=== PATIENT | female | born 1950 | race Hispanic/Latino ===

== ENCOUNTER 2016-12-19 01:02 | Inpatient (IN) | payer MEDICARE, MEDICAID ==
[2016-12-19] VITALS (10 sets, daily range): BP systolic 94–137; BP diastolic 43–70; PULSE 57–80; RESP 16–20; O2SAT 95–99
[~2016-12-19] VITALS: Ht 154.9 cm; Wt 93.2 kg
[~2016-12-19 01:02] MED LIST: ACET-171 PO; ACET1TAB42 PO; ASPI-235 PO; CLOP75TA3 PO; HUM100IN3 SUBQ; LOVA40TA PO; POLY17PO6 PO; SERT50TA PO; SEVE800T10 PO; VIT1TABL50 PO
[2016-12-19 01:18] LABS: BASOPHILS % (AUTO) 1.4 % (0-3); EOSINOPHILS % (AUTO) 2.7 % (0-5); MONOCYTES % (AUTO) 16.2 % (4-12); Mean Corpuscular Hemoglobin 32.5 pg (27.0-35.0); Mean Corpuscular Volume 100.2 fL (81-100); NEUTROPHILS % (AUTO) 51.3 % (40-74); Platelet Count 246 bil/L (150-400)
--- NOTE | 2016-12-19 01:20 | ED.REPORT ---
HPI-Chest Pain 40 and Over Date of Service Dec 19, 2016 ED Provider: Jay Jay Heaton DO A 66 year old female with a history of diabetes, ESRD on dialysis, depression, CHF, stroke, anemia, and right shoulder surgery is brought to the ED via EMS due to nonradiating right-sided chest pain. The pain began approximately 45 minutes prior to when the pt called paramedics. The pt denies pressure, sharp pain, ripping pain, or tearing pain, describing more of a "discomfort." She received aspirin en route which resolved the pain. She denies neck pain, back pain, abdominal pain, or pleuritic pain, as well as any history of similar symptoms. The pt took her blood sugar before calling paramedics, which was in the 390's. She took 10 units of insulin and her dose of Lantus. Nursing Notes Stated Complaint: CHEST PAIN Chief Complaint: Chest Pain Nursing Notes Reviewed: Yes Allergies: Coded Allergies: adhesive tape (Verified Allergy, Severe, Rash/Blister/Skin Tears (Paper OK), 06/02/16) latex (Verified Allergy, Severe, RASH, 06/02/16) losartan (Verified Allergy, Severe, Rash,Itching,, 06/02/16) MAYURI Inhibitors (Verified Adverse Reaction, Severe, cough, 06/02/16) gentamicin (Verified Adverse Reaction, Severe, NAUSEA DIARRHEA, 06/02/16) Scheduled Acetaminophen/Codeine 300-30mg (Acetaminophen/Codeine 300-30mg) 1 Each Tablet 1 TAB PO 3x WEEKLY BEFORE DIALYSIS & hs prn Aspirin (Lite Coat Aspirin) 325 Mg Tablet 325 MG PO DAILY Cholecalciferol (Vitamin D3) (Vitamin D) 1,000 Unit Tablet 4,000 UNIT PO DAILY Clopidogrel Bisulfate (Plavix) 75 Mg Tablet 75 MG PO DAILY Hum Insulin NPH/Reg Insulin Hm (HUMulin 70/30 U100 Insulin Kwikpen) 100 Unit/1 Ml Insuln.pen 27 UNIT SUBQ AM Hum Insulin NPH/Reg Insulin Hm (HUMulin 70/30 U100 Insulin Kwikpen) 100 Unit/1 Ml Insuln.pen 7-10 UNIT SUBQ evening per sliding scale Lovastatin (Lovastatin) 40 Mg Tablet 40 MG PO HS Polyethylene Glycol 3350 (Miralax) 17 Gm Powd.pack 17 GM PO DAILY Sertraline HCl (Zoloft) 50 Mg Tablet 25 MG PO DAILY Sevelamer HCl (Renagel) 800 Mg Tablet 2,400 MG PO BID Vit B Cmplx 3/FA/Vit C/Biotin (Nephro-Agustina Rx) 1 Each Tablet 0.8 MG PO DAILY Scheduled PRN Acetaminophen (Acetaminophen) 500 Mg Tablet 500-1,000 MG PO Q6H PRN PRN For Fever Bisacodyl (Dulcolax) 5 Mg Tablet.dr 5 MG PO DAILY PRN PRN For Constipation Miscellaneous Medications Cinacalcet (Sensipar) 30 Mg Tablet General Time Seen by MD: 01:20 Chief Complaint Chest pain Hx Obtained From: Patient, EMS Arrived By: Ambulance Sudden in Onset?: Yes Onset Occurred: 1 - 4 hours ago Recent Healthcare: Recent doctor visit, Recent hospitalization Similar Sx Previous: No Past Medical History Past Medical History ESRD on dialysis - 20 years Gout sleep apnea on CPAP Arthritis Depression Pressure ulcer anemia small bowel perforation Reports: Congestive heart failure, Diabetes mellitus, Stroke Reports: Diverticulitis Past Surgical History right shoulder surgery hernia repair 2x trigger finger eye surgery Acute Small Bowel Perforation post Exploratory laparotomy; small bowel resection with primary anastomosis; and wound VAC placement on 02/24/16 Smoking History Never Smoker Social History Alcohol Use: "Social" Other Social History: Good social support, Local resident Ambulatory Status Independent Review of Systems Constitutional: Denies: Fever Respiratory: Denies: Non-productive cough, Pleuritic pain, Shortness of breath Cardiovascular: Reports: Chest pain GI: Denies: Abdominal pain Musculoskeletal: Denies: Back pain, Neck pain Skin: Denies Rash Complete sys rev & neg: except as marked. Physical Exam Initial Vital Signs Vital Signs (First) Date Time Temp Pulse Resp B/P Pulse Ox O2 Delivery O2 Flow Rate FiO2 12/19/16 01:15 36.6 69 16 137/61 98 Room Air Initial VS: Reviewed General/Constitutional: Awake, Alert Respiratory / Chest: Atraumatic, Breath sounds NL, Breath sounds = bilat, No respiratory distress Cardiovascular: Heart rate NL, Regular rhythm, Heart sounds NL Abdomen: Atraumatic, Soft, Non-tender Neck: Atraumatic, Supple, Full range of motion Back: Atraumatic, Full range of motion Lower Extremity / Pelvis / MS: Atraumatic, Full range of motion Skin: Atraumatic, Color NL, No rash, Warm, Dry Neurologic: Oriented X3, Speech NL, No motor deficits, No sensory deficits Psychiatric: Affect NL, Mood NL Head / Eyes: Atraumatic, Normocephalic, PERRL, EOMI ENT: Atraumatic, Airway patent, Mucous membranes moist Upper Extremity / MS: Atraumatic, Full range of motion Interpretation & Diagnostics Lab Results Interpretation Result Diagram: 12/19/164 12/19/16 0114 Test 12/19/16 01:14 White Blood Count 5.6th/mm3 (3.8-10.1) Red Blood Count 4.06mil/mm3 (3.90-5.20) Hemoglobin 13.2g/dL (12.0-15.6) Hematocrit 40.7% (35.0-46.0) Mean Corpuscular Volume 100.2fL (81-100) Mean Corpuscular Hemoglobin 32.5pg (27.0-35.0) Mean Corpuscular Hemoglobin Concent 32.4% (32.0-37.0) Red Cell Distribution Width 17.5% (12.3-15.4) Platelet Count 246bil/L (150-400) Neutrophils (%) (Auto) 51.3% (40-74) Lymphocytes (%) (Auto) 28.2% (14-46) Monocytes (%) (Auto) 16.2% (4-12) Eosinophils (%) (Auto) 2.7% (0-5) Basophils (%) (Auto) 1.4% (0-3) Sodium Level 140mEq/L (134-144) Potassium Level 4.5mEq/L (3.5-5.2) Chloride Level 96mEq/L (97-108) Carbon Dioxide Level 24mmol/L (18-29) Blood Urea Nitrogen 35mg/dL (8-27) Creatinine 4.38mg/dL (0.57-1.00) Estimat Glomerular Filtration Rate 14mL/min (>59) Glucose Level 399mg/dL (60-99) Calcium Level 8.2mg/dL (8.5-10.1) Magnesium Level 2.3mg/dL (1.6-2.6) Total Bilirubin 0.3mg/dL (0.0-1.2) Aspartate Amino Transf (AST/SGOT) 21U/L (0-50) Alanine Aminotransferase (ALT/SGPT) 15U/L (0-32) Alkaline Phosphatase 283U/L (25-165) Total Protein 7.7g/dL (6.4-8.4) Albumin 4.3g/dL (3.4-5.0) Pulse Oximetry Interpretation Pulse Oximetry Interpretation: 98% on room air Pulse Oximetry: Pulse Ox normal ECG Interpretation Interpreted by: ED physician Normal ECG Interpretation: Normal sinus rhythm Abnormal T wave or ST segment: T-waves flat-inv inf wall Rhythm Strip Interpretation : Rhythm Strip Interpretation: Interpreted by me, Normal sinus rhythm CBC Interpretation CBC normal Cardiac / Vascular Lab Interp Troponin abnormal X-Ray Chest Interpretation Chest Xray Interpretation: under penetrated no acute disease Interpretation / Wet Read by: Wet read ED physician Re-Eval/Medical Decision Med Decision/Clinical Course 66-year-old female with multiple cardiac risk factors presents after suffering up to an hours worth of right sided chest pain. The pain was not pleuritic nor was a ripping and tearing in nature. She has never had pain like this before. She is a brittle diabetic who has end-stage renal disease secondary to her diabetes. EKG in the field did not show a STEMI. EKG upon arrival shows T- wave inversion in the inferior leads with subtle ST depression which is new from prior EKG. No voltage criteria for ST elevation AK. Patient presented and remained completely pain-free. Her diagnostics were reassuring except the fact that her troponin was elevated. Chest x-ray was normal. She is treated with aspirin and IV heparin for acute coronary syndrome. She will be admitted to the PCU to further evaluate the cause of her chest pain. Cardiology was notified as well. Source of Hx: Old records Time of Eval: 01:20 Patient Status: Condition improved Re-Evaluation/Progress Note: Pt informed of the need for admission during the initial interview. The pt understands and agrees with the plan. All questions are addressed at this time. Consultation #1: Referral / Consult Name: Tha Bhatia MD Consulted With: Hospitalist Call Returned at: 02:27 Composition Floor Layer: Agrees with eval, Agrees with plan, Accepts admit Note: Spoke with Dr. Bhatia, hospitalist, regarding pt's case. Dr. Bhatia agrees with the evaluation and agrees to admit the pt. Consultation #2: Referral / Consult Name: Caroline Nunn MD Consulted With: Cardiology Call Returned at: 02:35 Composition Floor Layer: Agrees with eval, Agrees with plan Note: Consulted with Dr. Nunn, cardiology, regarding pt's case. Dr. Nunn agrees with the evaluation and plan. Counseled Regarding: Diagnosis, Lab results, Need for admission Discharge & Departure Primary Impression: NSTEMI (non-ST elevated myocardial infarction) Additional Impression: ESRD (end stage renal disease) on dialysis Disposition: ADMITTED TO HOSPITAL Discharge Condition All VS Reviewed: Yes Condition: Stable Referrals: Etelvina Banegas MD (PCP) Jt Silverman Larry E MD Crit Care Except Billable Proc Time Spent: 30-74 minutes Scribe Attestation Portions of this note were transcribed by Evelyn Amos. I, Dr. Heaton personally performed the history, physical exam and medical decision-making; I reviewed and confirmed the accuracy of the information in the transcribed note. Signed by: Tyron Crespo, 12/19/2016 and 0147. copies to: Jt Silverman DO; Etelvina Banegas MD; Brock Ku MD, Todd P DO Dec 19, 2016 01:20 EVELYN AMOS Dec 19, 2016 01:43
[2016-12-19 02:07] LABS: Magnesium 2.3 mg/dL (1.6-2.6); TROPONIN T 0.066 ug/L (0.0-0.011)
[2016-12-19] MEDS ORDERED: Heparin 25K Unit/500mL 0.45 NS 25,000 UNIT in IV Premix 1 EACH IV SCH (02:20)
[2016-12-19] MEDS ORDERED: Heparin 5,000 Unit/mL Inj IVPUSH ONE (02:20)
[2016-12-19] MEDS: 0.9% Sodium Chloride 1,000 ML IV SCH ×2 (02:29→17:54)
[2016-12-19] MEDS ORDERED: Senna-Docusate 8.6-50 mg Tablet PO PRN (02:30)
[2016-12-19] MEDS ORDERED: Polyethylene Glycol (PEG) 17 Gm Powder PO PRN (02:30)
[2016-12-19] MEDS ORDERED: Ondansetron 2 mg/mL 2 mL Inj IVPUSH PRN (02:30)
[2016-12-19] MEDS ORDERED: Atropine 1 mg/10 mL (Code) Syringe IVPUSH PRN (02:30)
[2016-12-19] MEDS ORDERED: Alum-Mag Hydrox-Simeth 30 mL Suspension PO PRN (02:30)
--- NOTE | 2016-12-19 02:38 | PCM.HPMED ---
Subjective Date of Service Dec 19, 2016 Primary Provider: Admitting Physician: Primary Care Physician: Etelvina Banegas MD Attending Physician: Admit Status: From the Emergency Department, Full Admit, PCC Telemetry Chief Complaint: Chest pain History of Present Illness: Dannielle Wolf is a 66 year old female with Diabetes, ESRD on dialysis, Stroke and Hyperlipidemia brought to [facility] emergency department via EMS due to nonradiating right-sided chest pain. The pain began approximately 45 minutes prior to when the pt called paramedics. Patient describing pain as more of a "discomfort." Non radiating. Mild intensity. She received aspirin en route which resolved the pain. She denies neck pain, back pain, abdominal pain, or pleuritic pain, as well as any history of similar symptoms. Patient has no prior history of cardiac disease The pt took her blood sugar before calling paramedics, which was in the 390's. She took 10 units of insulin and her dose of Lantus. She is legally blind Patient has been on dialysis for more than 21 years now. Currently receiving dialysis on Tuesday, and Tuesday Case discussed with Dr Heaton, who initiated treatment for Non ST elevation MD. Heparin drip started Review of Systems: Pertinent positives as noted in HPI. All other systems were reviewed and are negative Allergies Coded Allergies: adhesive tape (Verified Allergy, Severe, Rash/Blister/Skin Tears (Paper OK), 06/02/16) latex (Verified Allergy, Severe, RASH, 06/02/16) losartan (Verified Allergy, Severe, Rash,Itching,, 06/02/16) MAYURI Inhibitors (Verified Adverse Reaction, Severe, cough, 06/02/16) gentamicin (Verified Adverse Reaction, Severe, NAUSEA DIARRHEA, 06/02/16) Home Medications From [facility], not yet confirmed Dannielle Wolf [id number] 1950 11/10/2016 12:15 PM 1/5 acetaminophen 500 mg tablet take 1 - 2 tablet by oral route every 6 hours as needed not to exceed 6 tablets per day aspirin 325 mg Tab take 1 tablet (325MG) by ORAL route every day Humulin 70/30 100 unit/mL (70-30) Susp, Sub-Q Inj inject 27 units by Subcutaneous route per insulin protocol in the morning and 7-10 units every evening depending on blood sugar Lovastatin 1 tablet by mouth daily Miralax 17 gram/dose oral powder take (17G) by oral route every day mixed with 8 oz. water, juice, soda, coffee or tea Nephro-Agustina 0.8 mg Tab take 1 tablet by ORAL route every day at bedtime Plavix 75 mg tablet take 1 tablet by oral route every day to prevent blood clots. Appt 01/22/15 Renagel 800 mg tablet take 3 tablets by ORAL route 3 times every day Vitamin D3 1,000 unit tablet take 1 tablet by oral route every day Zoloft 50 mg Tab take 1/2 tablet by ORAL route every day ZOSTAVAX (PF) 19,400 unit subcutaneous suspension 1 dose PMH Stroke back in 1985. End-stage renal disease on hemodialysis Type 2 diabetes mellitus on insulin. Hyperlipidemia. Sleep apnea. History of pressure ulcers. Diverticulitis. Legally blind Mild Aortic stenosis . Surgical History Right shoulder surgeries Trigger finger surgery Right carpal tunnel surgery in 2009. 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 Ventral Hernia repair Small Bowel Perforation post Exploratory laparotomy; small bowel resection with primary anastomosis; and wound VAC placement on 02/24/16 Family History Diabetes mellitus, heart disease, and hypertension runs in the family. Social History Hx Alcohol Use: Yes (RARE) Hx Substance Use: No Hx Tobacco Use: No Smoking Status: Never Smoker Living Arrangement: with Family Exam Vital Signs Vital Sign - Last Date Time Temp Pulse Resp B/P Pulse Ox O2 Delivery O2 Flow Rate FiO2 12/19/16 01:15 36.6 69 16 137/61 98 Room Air Exam General: Alert, Oriented X3, Cooperative, No acute Distress Eyes: PERRLA, Scleral Anicteric Mouth: Mouth Normal, Mucous Membranes Moist/[place] Neck: Supple, no Thyromegaly, trachea central. Chest & Lungs: Clear to auscultation & percussion, No adventitious breath sounds, no crackles, no wheeze Cardiovascular: Normal S1, Normal S2, No Murmurs/Rubs/Gallops, Regular Rate/ Rhythm, (No JVD, no peripheral edema) Pulses: Radial (present and equal), Dorsalis Pedi (present and equal) Abdomen: Soft, Non-tender, Non-distended, Normoactive bowel tones. Musculoskeletal: Unremarkable. Normal range of motion, no swollen or erythematous joints Extremities: No edema, no cyanosis, no clubbing. Skin: No rashes. Warm and dry, no erythematous areas. Venous stasis changes Neurological: Grossly neurologically intact, Normal Speech, Sensation Intact Lymphatic: Lymph nodes Cervical and Axillary not palpable. Lab and Diagnostics Labs Laboratory Tests Test 12/19/16 01:14 White Blood Count 5.6th/mm3 (3.8-10.1) Red Blood Count 4.06mil/mm3 (3.90-5.20) Hemoglobin 13.2g/dL (12.0-15.6) Hematocrit 40.7% (35.0-46.0) Mean Corpuscular Volume 100.2fL (81-100) Mean Corpuscular Hemoglobin 32.5pg (27.0-35.0) Mean Corpuscular Hemoglobin Concent 32.4% (32.0-37.0) Red Cell Distribution Width 17.5% (12.3-15.4) Platelet Count 246bil/L (150-400) Neutrophils (%) (Auto) 51.3% (40-74) Lymphocytes (%) (Auto) 28.2% (14-46) Monocytes (%) (Auto) 16.2% (4-12) Eosinophils (%) (Auto) 2.7% (0-5) Basophils (%) (Auto) 1.4% (0-3) Sodium Level 140mEq/L (134-144) Potassium Level 4.5mEq/L (3.5-5.2) Chloride Level 96mEq/L (97-108) Carbon Dioxide Level 24mmol/L (18-29) Blood Urea Nitrogen 35mg/dL (8-27) Creatinine 4.38mg/dL (0.57-1.00) Estimat Glomerular Filtration Rate 14mL/min (>59) Glucose Level 399mg/dL (60-99) Calcium Level 8.2mg/dL (8.5-10.1) Magnesium Level 2.3mg/dL (1.6-2.6) Total Bilirubin 0.3mg/dL (0.0-1.2) Aspartate Amino Transf (AST/SGOT) 21U/L (0-50) Alanine Aminotransferase (ALT/SGPT) 15U/L (0-32) Alkaline Phosphatase 283U/L (25-165) Troponin T 0.066ug/L (0.0-0.011) Total Protein 7.7g/dL (6.4-8.4) Albumin 4.3g/dL (3.4-5.0) Result Diagram: 12/19/1611312/19/16113 Assessment & Plan Dannielle Wolf is a 66 year old female with Diabetes, ESRD on dialysis, Stroke and Hyperlipidemia brought to [facility] emergency department via EMS due to nonradiating right-sided chest pain 1. Non ST elevation Myocardial Infarction. Present on admission Several risk factors for Acute coronary disease with age, Diabetes, Hyperlipidemia and longstanding renal disease. EKG with some changes noted. - continue Heparin drip ACS protocol - Antithrombotic therapy with Plavix and Aspirin - Cardiology consultation requested from ED - Metoprolol 25 mg bid started 2. Hypocalcemia. Present on admission Likely due to increased loss from chronic renal insufficiency and pseudohypoparathyroidism - continue supplementation - monitor on telemetry 3. 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 Prior history without any residual - continue secondary prevention with Aspirin, Plavix and statin 6 Hyperlipidemia. - checking Lipids - continue Lovastatin - Acetaminophen as needed for mild pain/fever/headache - Bowel regimen as needed - Antiemetic as needed Patient admitted under inpatient status with expected length of stay > 2 midnights for severity of present symptoms, complexities of treatment plan and risk for adverse event . Resuscitation Status: CPR: Attempt Resuscitation Tha Bhatia MD Dec 19, 2016 02:38 Resuscitation Status: CPR: Attempt Resuscitation Tha Bhatia MD Dec 19, 2016 02:38
[2016-12-19] MEDS ORDERED: Glucose 40% Oral Gel 15 Gm Tube PO PRN (02:40)
[2016-12-19 03:24] LABS: Creatine Kinase 66 U/L (21-215)
[2016-12-19] MEDS ORDERED: CINA30TA (04:12)
[2016-12-19] MEDS ORDERED: CHOL100043 PO (04:12)
--- NOTE | 2016-12-19 04:27 | NUR ---
Admit Patient admitted to [facility] 2025 at 0315. Admit documentation complete. Patient is A&Ox3, BOND; reported 4/10 chest pain upon arrival to room that subsided on its own before any interventions could be initiated. Patient reports that she began to have chest pain Tuesday evening while she was at home alone; she was tearful as she was thinking about her son who is going away to assisted today (Tuesday). As she was crying she began to have dull, right sided chest pain. She is anxious to leave the hospital so that she can take advantage of a last chance to see her son before he is taken to assisted later today. While relating this history to the nurse, patient again began to have "mild" right sided chest pain without shortness of breath. 0.4mg sublingual nitro administered with improvement of chest pain to 1/10. Continue to monitor.
[2016-12-19 04:28] LABS: TROPONIN T 0.057 ug/L (0.0-0.011)
--- NOTE | 2016-12-19 07:30 | DRSVH ---
PROCEDURE: X-RAY CHEST ONE VIEW, PORTABLE ([id number]) INDICATIONS: CP TECHNIQUE: One view of the chest was acquired. COMPARISON: [facility], CR, XR CHEST 1VW (PORTABLE), 06/22/2016, 3:12. [facility]ital, CT, CT ANGIO CHEST PE, 04/20/2016, 0:02. [facility], CR, XR CHEST 1VW (PORTABLE), 04/19/2016, 21:32. FINDINGS: Surgical changes and devices: None. Lungs and pleura: No pleural effusions or pneumothorax. Lungs are clear. Mediastinum: Mediastinal contours appear normal. Heart size is enlarged. Bones and chest wall: No suspicious bony lesions. Overlying soft tissues appear unremarkable. IMPRESSION: No acute process. Dictated by: Williams Samuels M.D. on 12/19/2016 at 7:29 Approved by: Williams Samuels M.D. on 12/19/2016 at 7:29
[2016-12-19] MEDS: Insulin LISPRO 300 Unit/3 mL Inj SUBQ SCH ×4 (08:00→22:00)
[2016-12-19] MEDS: Sodium Chloride LOK Flush 10 mL Syringe IVFLUSH SCH ×2 (08:30→16:30)
[2016-12-19] MEDS ORDERED: BISA-67 PO (08:40)
--- NOTE | 2016-12-19 10:22 | NUR ---
Social Work: Initial Assessment D: Per EMR review, pt is a 66 year old female admitted for acute coronary syndrome, resolved CP. Pt is Medicare with [facility] supplement; pt has no LTC insurance or VA benefits. PCP is Zayda Banegas MD. NOK is Samir Wolf, son, . Pt declined AD info and states she has it at home. Readmit score not entered at this time. [employer] REGISTRAR met with pt at bedside. Sw role explained and contact info provided. See initial assessment. Pt lives alone in a single-story apartment in [place]. Pt uses a cane at baseline and owns a walker which she uses on occasion. Pt is I with most ADLs but does not drive. Pt has a PP caregiver for 10 hours a month (2 hours every Tuesday) who assists her with grocery shopping and light chores. Pt has a history with [facility] but is not currently open for services. Pt has never been to SNF. Pt has been on dialysis which she completed at [facility]. Pt uses [facility]-a-ride for transport back and forth. Pt expresses no concerns about d/c home when ready. E[employer] REGISTRAR provided pt with a HH CHOICE LIST to review if pt requires this at d/c. She would prefer to continue with [facility] if ordered. P: Evolving; anticipate pt to likely discharge home; ELEMENT[employer] SCHOOL REGISTRAR to r/o HH. ELEMENT[employer] S[employer]OL REGISTRAR to continue to follow. MERLE Long Addendum: 12/19/16 at 1028 by JAIMIE QUEVEDO Amended: Links added.
[2016-12-19 10:30] LABS: Creatine Kinase 55 U/L (21-215)
[2016-12-19 10:33] LABS: TROPONIN T 0.059 ug/L (0.0-0.011)
[2016-12-19] MEDS: Heparin 5,000 Unit/mL Inj IVPUSH PRN ×2 (11:42→21:24)
--- NOTE | 2016-12-19 18:24 | PCM.PNMED ---
Subjective Date of Service Dec 19, 2016 Subjective Patient reports resolution of chest pain and shortness of breath. She asking to go home today so she may visit with her son prior to his incarceration. Overnight, patient had episode of chest pain triggered by anxiety. Resolved with SL nitro. Exam Vital Signs Vital Sign - Last Date Time Temp Pulse Resp B/P Pulse Ox O2 Delivery O2 Flow Rate FiO2 12/19/16 16:35 36.7 57 18 134/70 99 Nasal Cannula 2.00 Intake and Output 12/18/16 12/18/16 12/19/16 Cumulative From/Thru 15:00 23:00 07:00 12/19/16 01:15 - 12/19/16 06:38 Intake Total 77 ml 77 ml Balance 77 ml 77 ml Intake IV Total 77 ml 77 ml Exam General: Alert, Oriented X3, Cooperative, No acute Distress Eyes: Scleral Anicteric, legally blind Mouth: Mouth Normal, Mucous Membranes Moist/[place], no oral thrush appreciated Neck: Supple, no Thyromegaly, trachea central, no JVD Chest & Lungs: Clear to auscultation & percussion, No adventitious breath sounds, no crackles, no wheeze Cardiovascular: Normal S1, Normal S2, No Murmurs/Rubs/Gallops, Regular Rate/ Rhythm Pulses: Radial (present and equal bilaterally), Dorsalis Pedi (present and equal bilaterally) Abdomen: Soft, Non-tender, Non-distended, Normoactive bowel tones. Extremities: No edema, no cyanosis, no clubbing. AV fistula present in RUE with bruit and thrill appreciated. Skin: No rashes. Warm and dry, no erythematous areas. Venous stasis changes Neurological: Grossly neurologically intact, Normal Speech, Sensation Intact IVs and Medications Medications Reviewed: Medications were reviewed in detail Lab and Diagnostics Result Diagram: 12/19/1611312/19/16113 X-Rays, CTs and MRIs PROCEDURE: X-RAY CHEST ONE VIEW, PORTABLE IMPRESSION: No acute process. Dictated by: Williams Samuels M.D. on 12/19/2016 at 7:29 Assessment & Plan Patient is a 66 year old female with Diabetes, ESRD on dialysis, Stroke and Hyperlipidemia brought to [facility] emergency department via EMS due to nonradiating right-sided chest pain. Hospital day 1. 1. Non ST elevation Myocardial Infarction, acute. Present on admission - Several risk factors for Acute coronary disease with age, Diabetes, Hyperlipidemia and longstanding renal disease. EKG with some changes noted. - Continue Heparin drip ACS protocol. - Antithrombotic therapy with Plavix and Aspirin. - Cardiology consultation requested for evaluation of possible cardiac catheterization and we appreciate their input. - Holding metoprolol and nitro in anticipate of NM stress testing tomorrow AM. - NPO after midnight. - EKG tomorrow AM. - Morphine available IV push PRN chest pain. 2. Hypocalcemia, present on admission, ongoing. - Likely due to increased loss from chronic renal insufficiency and pseudohypoparathyroidism - Continue to monitor BMP and replace if needed. 3. 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 - Hgb A1c ordered and pending. 4. End-stage renal disease, on hemodialysis //Tue, presume stable. - Due to Diabetic Nephropathy and possible Hypertensive Nephrosclerosis. - No indications for emergent dialysis. - Nephrology consulted for inpatient dialysis orders and we appreciate their input. - Continue Renvela. - Follow BMP. 5. History of CVA, chronic, presume stable. - Continue secondary prevention with Aspirin, Plavix and statin 6 Hyperlipidemia, chronic, presume stable. - Lipids ordered and pending. - Continue statin. 7. Depression, chronic, presume stable. - Continue sertraline 25 mg daily. - Acetaminophen as needed for mild pain/fever/headache - Bowel regimen as needed - Antiemetic as needed Disposition: if stress testing normal anticipate discharge home tomorrow. Pain Evaluation: Adequate Pain Control Resuscitation Status: CPR: Attempt Resuscitation Attending Statement The patient was seen and examined together with Dr. Guzman on 12/19/2016 and I agree with the history, exam and plan as outlined in the note above. . Hailey Guzman DO Dec 19, 2016 18:24 Alfonso Rodríguez MD Dec 19, 2016 18:30
--- NOTE | 2016-12-19 18:35 | NUR ---
Pain/PTT Pt c/o continuous 1/10 pain, and once of 4/10 pain after walking back from bathroom. Pain gone before intervention. PTT >230 at about 1615. Heparin stopped per protocol, Stat PTT lab ordered, Single Stroke Preformer made aware. Ptt 139 at 1740. new order for PTT lab ordered. Awaiting result. Will report to oncoming RN.
--- NOTE | 2016-12-19 18:37 | CONS ---
[address] [address] CONSULTATION REPORT PATIENT: MURRAY GRAHAM : 1950 MR#: [id number] ADMIT: 12/19/2016 JOB ID: [id number] DATE OF SERVICE: 12/19/2016 CHIEF COMPLAINT: Chest pain. HISTORY OF PRESENT ILLNESS: The patient is a delightful 66-year-old woman with multiple coronary artery disease risk factors including end-stage renal disease for the past 20 years, diabetes diagnosed over 20 years ago, hypertension, hyperlipidemia, sleep apnea, and prior stroke. She says that yesterday she learned that her son was going to [facility]. She says that she started crying when she heard this information. Then suddenly she developed sharp right-sided chest pain. It was continuous. Her EKG demonstrates normal sinus rhythm with T-wave inversions in lead III and aVF. Her troponin T is mildly elevated for a dialysis patient, most recently peaking at 0.066 and Cardiology is consulted to assist with management. PAST MEDICAL HISTORY: 1. Diabetes--most recent available hemoglobin A1c is 10% as of June 21, 2016. 2. Hyperlipidemia--controlled as of August 2016. Total cholesterol 136, triglycerides 145, HDL 58, LDL 59. 3. End-stage renal disease due to diabetic nephropathy. 4. The patient was considered for transplant in the past but her stage 3 obesity precluded workup. 5. Hypertension--controlled. 6. Mild stroke in 1984 presented as right arm and leg weakness and facial droop. 7. Diabetic retinopathy with legal blindness with complete loss of vision in the right eye associated with detached retina in 1995. 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 8. Peripheral vascular disease primarily involving the left leg. Arteriogram, September 2012, showed only one-vessel runoff. The anterior tibial artery is the only vessel that is patent and the distal segment is totally occluded. 9. Chronic arthritis involving right hip and osteoarthritis of her knees. 10. False-positive nuclear stress test in the past with reassuring cardiac catheterizations in 2003 and 2010. 11. Obstructive sleep apnea, on CPAP. 12. Secondary hyperparathyroidism, treated with phosphate binders. 13. Left eye herpes zoster treated with acyclovir and gabapentin with resulting severely reduced visual acuity. 14. Left 3rd toe osteomyelitis for which she underwent amputation of the tip. 15. Bilateral carpal tunnel syndrome. Status post right carpal tunnel release, May 2010. 16. Ventral abdominal hernia repair with mesh. 17. She had panniculitis and huge ventral hernia that was treated with repair in 2006. SOCIAL HISTORY: The patient is . She has three sons. The middle son is adopted and has alcohol syndrome and that resulted in some of his legal troubles. He is about to be incarcerated and she is quite despondent about it because she says this son has always been there for her. She does not smoke and does not drink alcohol. FAMILY HISTORY: Significant for diabetes, stroke, kidney failure. REVIEW OF SYSTEMS: Sharp chest pain. Otherwise things are stable. She denies any claudication. Denies any dyspnea on exertion. No exertional chest discomfort. Otherwise 10 point review of systems is negative. ALLERGIES: 1. MAYURI INHIBITOR. 2. ADHESIVE TAPE. 3. GENTAMICIN. 4. LATEX. 5. LOSARTAN. CURRENT MEDICATIONS: 1. Aspirin 81 mg daily. 2. Plavix 75 mg daily. 3. Lovastatin 40 mg daily. 4. NPH. 5. Sertraline. 6. Renagel 800 mg tablets 2400 mg twice a day. 7. Sensipar 30 mg daily. PHYSICAL EXAMINATION: Very pleasant lady, lying flat in bed, in no apparent distress. Temperature 36.7, blood pressure 126/60 up to 137/61, pulse 52, up to 72 beats per minute. She is satting 95% to 99% on 1.5 L nasal cannula. Obese woman in no apparent distress. Eyes: Right eye shows evidence of band keratopathy. She has severely reduced visual acuity in her left eye and blindness in her right eye. Neck supple. No lymphadenopathy. No carotid bruits. Heart: Normal S1, S2. No murmurs, rubs, or gallops. Lungs are clear to auscultation anteriorly. Abdomen is soft with positive bowel sounds. No hepatosplenomegaly. No evidence of periumbilical bruits. Extremities: Warm, well perfused. No clubbing, cyanosis, or edema. Skin: No rashes or lesions. Vascular exam shows intact dorsalis pedis bilaterally and absent posterior tibial pulses. EKG normal sinus rhythm. T-wave inversion in lead III and aVF. Echocardiogram I personally reviewed . It shows evidence of stress cardiomyopathy with distal segments and apical segments demonstrating hypokinesis. LV systolic function is mildly reduced 45, 50%. There is stage 2 diastolic dysfunction. Aortic sclerosis, mild aortic regurgitation. No evidence of pulmonary hypertension or pericardial effusion. Chest x-ray, I personally reviewed. Looks normal. ASSESSMENT AND PLAN: In summary, this is a delightful 66-year-old woman with a mildly elevated troponin T and highly atypical chest pain. Of note, when she was here in May with small bowel obstruction, her troponin T was likewise elevated. I think that this is unlikely to represent acute coronary syndrome. I think it is reasonable to pursue pharmacologic stress test with myocardial perfusion imaging to 100% cinch in the diagnosis. She has not had a stress test since 2013. Even though pain is atypical, she is at risk for heart disease. Because of her blindness she cannot really walk on the treadmill, so this would be a chemical stress test. In the interim, will continue heparin for management of possible non-STEMI, but I think the pattern of her troponin suggests that it is not cardiac,. I think that the pattern of her pain, the timing of onset of pain, and appearance of echocardiography is most consistent with stress cardiomyopathy. Unfortunately we are not able to initiate MAYURI inhibitor nor angiotensin receptor blockers due to history of adverse reactions to these medications in the past. I think we can at least start her on low-dose beta ady and see how she does. I will start her on Toprol-XL 12.5 mg daily. Thank you very much for the opportunity to take care of this delightful lady.
--- NOTE | 2016-12-19 18:51 | DRSVH ---
[facility] [address] [place] [address] Echocardiogram Report Name: MURRAY GRAHAM YStudy Date : 12/19/2016 Height: 61 in Hospital Exam Location: [facility] Weight: 205 lb Gender: Female BSA: 1.9 m2 : 1950 Age: 66 yrs BP: 132/62 mmHg Reason For Study: Chest pain Ordering Physician: Performed By: Leticia [facility]King[facility] Interpretation Summary Normal sinus rhythm. Normal LV size; normal wall thickness; there is subtle apical and distal segment hypokinesis c/w either distal LAD ischemia versus infarct versus stress cardiomyopathy. EF is 50-55%. Stage II diastolic dysfunction. Aortic valve is a trileaflet structure with moderate leaflet calcification. There is no significant aortic stenosis or regurgitation. There is moderate central mitral regurgitation in the setting of normal leaflets. Compared to prior study apical and distal segment wall motion abnormalities are new. Procedure: A two-dimensional transthoracic echocardiogram with color flow and Doppler was performed. The study quality was technically adequate. Comparison is made with the echocardiogram of 03-10-13. The patient was in normal sinus rhythm during the exam. Left Ventricle: There is normal left ventricular wall thickness. The ejection fraction is estimated to be 50-55%. there is apical and distal segment hypokinesis c/w either distal LAD ischemia versus infarct versus stress cardiomyopathy. Assessment of diastolic parameters indicates normal left ventricular diastolic function and normal filling pressures. Right Ventricle: The right ventricle is normal in size and function. Atria: The left atrium is moderately dilated. Right atrial size is normal. The interatrial septum is intact with no evidence for an atrial septal defect. Mitral Valve: The mitral valve leaflets appear mildly thickened, but open well. There is moderate mitral regurgitation. Aortic Valve: The aortic valve is trileaflet. Leaflet mobility is mild to moderately reduced. The aortic valve is moderately calcified. The aortic valve area is 1.4 centimeters squared by planimetry. No aortic regurgitation is present. Tricuspid Valve: The tricuspid valve leaflets are thin and pliable. There is mild tricuspid regurgitation. The right ventricular systolic pressure is estimated at 27 mmHg assuming a right atrial pressure of 3 mm Hg. Pulmonic Valve: The pulmonic valve is normal in structure and function. There is trace pulmonic regurgitation. Great Vessels: The aortic root is normal size. The dimensions of the ascending aorta are normal. The IVC is of normal diameter and collapses greater than 50% with a sniff. This suggests a low right atrial pressure of 3 mm Hg. Pericardium/ Pleura There is no pericardial effusion. There is no pleural effusion. MMode/2D Measurements & Calculations LVIDd LA dimension: 4.3 cm RA long axis: 4.8 cm LVOT diam: 2.1 cm : 5.8 cm Ao root diam LVIDs LA A2 area: 23.6 cm RA area: 18.2 cm : 4.7 cm LA A4 area: 23.1 cm RA vol: 58.8 ml Aortic Jxn: 2.7 cm FS: 18.1 % LA length (vol) RA : 30.8 ml/m asc Aorta Diam IVSd RVDd major: 5.5 cm : 0.9cm LA vol: 91.7 ml Ao Arch Diam (Prox LVPWd LA vol index Trans): 3.2 cm : 0.9cm IVC diam: 1.4 cm ANDREINA (plan) LV monroe. diameter/BSA LV sys. diameter/BSA RVD1 (basal) : 1.4 cm2 (cm/m^2): 3.0 (cm/m^2): 2.5 : 4.1 cm RVD2 (mid) : 3.5 cm Doppler Measurements & Calculations Ao V2 max MV E max brett MV E/A: 0.99 TR max brett : 195.0 cm/sec : 88.5 cm/sec Med Peak E' Brett : 242.3 cm/sec Ao max PG MV A max brett TR max P.5 mmHg : 15.2 mmHg : 89.6 cm/sec E/E' med: 40.1 PA V2 max Ao mean PG MV P1/2t Lat Peak E' Brett : 72.7 cm/sec : 58.0 msec PA mean P.2 mmHg LVOT Max Brett MR ERO: 0.08 cm2 E/E' lat: 12.8 PA Accel Time : 86.1 cm/sec E/e' average: 26.4 : 0.19 sec ANDREINA(I,D): 1.3 cm Pulm A Revs Dur sev ratio MV A dur: 0.16 sec MV dec time MV P1/2t max brett Ao V2 mean LV V1 max PG : 0.19 sec : 145.8 cm/sec MVA(P1/2t) Ao V2 VTI: 57.0 cm LV V1 VTI: 22.5 cm : 3.8 cm2 ANDREINA(V,D): 1.5 cm2 MR flow rate PA V2 mean ANDREINA indexed to BSA Pulm A Revs Dur - MV : 52.4 cm/sec (cm^2/m^2): 0.68 A Dur: -0.04 msec : 39.1 cm3/sec MR PISA radius Reading Physician:06:50 PM
--- NOTE | 2016-12-19 20:16 | CONS ---
[address] [address] CONSULTATION REPORT PATIENT: MURRAY GRAHAM : 1950 MR#: [id number] ADMIT: 12/19/2016 JOB ID: [id number] DATE OF SERVICE: 12/19/16 REQUESTING PHYSICIAN: Dr. Rodríguez. REASON FOR CONSULTATION: Management of end-stage renal disease. CHIEF COMPLAINT: Right-sided chest pain. HISTORY OF PRESENT ILLNESS: This is a very pleasant 66-year-old lady with significant past medical history of type 2 diabetes, stroke, end-stage renal disease on hemodialysis every Tuesday, , Tuesday, and sleep apnea, who presented to the hospital with complaint of right-sided chest pain. The patient had dialysis yesterday without complication. However, last night, she experienced right-sided chest discomfort last night. The pain was localized on the right-sided area, nonradiating. She did not experience any palpitations or sweating. She reported having high blood sugar of 390s. She gave herself short-acting insulin Lantus prior to calling the EMS. The patient received aspirin while being transported to the emergency department. The pain subsided after the dose of aspirin. Her initial vital signs showed a temperature of 36.6, pulse of 69, respiratory rate of 16, blood pressure of 137/61. Her initial troponin was 0.066. The patient was started on a heparin drip as for treatment of [id number] [place]. During my visit, the patient has very mild pain with a pain scale of 1/10. Echocardiogram is pending. She is a patient of Dr. Brock Ku. She has been on hemodialysis for 21 years. Her last dialysis was done yesterday without complications. Her current potassium is 4.5. She has no shortness of breath at the moment. She is quite comfortable. PAST MEDICAL HISTORY: 1. End-stage renal disease, on hemodialysis every Tuesday, , Tuesday. 2. Type 2 diabetes with renal manifestations. 3. Dyslipidemia. 4. Legally blind. 5. CVA in 1985. 6. Renal osteodystrophy. 7. Dyslipidemia. 8. Diabetic neuropathy. 9. Peripheral vascular disease. 10. Obstructive sleep apnea. 11. History of multiple foot ulcers. PAST SURGICAL HISTORY: 1. Status post multiple abdominal procedures requiring mesh placement. 2. Right AV fistula creation. 3. Right shoulder surgery. 4. Trigger finger surgery. 5. Right carpal tunnel surgery. 6. Toe amputations. 7. Status post revision of right brachiocephalic fistula and excision of aneurysm of the fistula. FAMILY HISTORY: Positive for coronary artery disease, hypertension, and diabetes. SOCIAL HISTORY: Denies current use of alcohol, tobacco, illicit drugs. REVIEW OF SYSTEMS: A 14-point review of systems was performed. PHYSICAL EXAMINATION: Vitals: Temperature 36.6, pulse 66, respiratory rate 20, blood pressure 126/60, O2 sat 96% on nasal cannula. General appearance: Awake, alert, oriented x3. No acute distress. HEENT: No pallor. No jaundice. No JVD. No lymphadenopathy. No thyroid enlargement. Heart: Regular rhythm. Normal S1, S2. No murmurs, rubs, or gallops. Lungs: Clear to auscultation bilaterally. No wheezing. No rhonchi. Abdomen: Soft, active bowel sounds. Nontender. Nondistended. No hepatosplenomegaly. Extremities: No edema, cyanosis or clubbing of fingers. Right AV fistula with good thrill. LABORATORY: WBC 5.6, hemoglobin 13.2. Sodium 140, potassium 4.5, chloride 96, bicarb 24, BUN 35, creatinine 4.38, calcium 8.2. Troponin 0.059. TSH 4.23. ASSESSMENT: 1. Suspected [id number] myocardial infarction, currently on heparin drip, being evaluated by a load blocker. 2. End-stage renal disease, on hemodialysis every Tuesday, , Tuesday. No urgent dialysis indicated at this moment. 3. Renal osteodystrophy. Her current calcium is 8.2. I will check her phosphorus level. Will hold Sensipar for now. 4. Type 2 diabetes complicated by retinopathy, nephropathy. 5. Legally blind. 6. Dyslipidemia. 7. History of stroke in 1985. PLAN: From renal standpoint, we will arrange for dialysis likely on Tuesday. There is no urgent dialysis indicated at this moment. We will hold Sensipar. Will check her phosphorus level. The patient will be continued on her current phosphate binder. Continue to follow Cardiology recommendations. Thank you for the consultation. We will monitor along with you. MALENA
[2016-12-20] MEDS: Sodium Chloride LOK Flush 10 mL Syringe IVFLUSH SCH ×3 (00:30→16:30)
[2016-12-20] MEDS: 0.9% Sodium Chloride 1,000 ML IV SCH ×2 (03:29→12:27)
[2016-12-20 03:34] VITALS: BP 101/50; PULSE 60; RESP 18; O2SAT 99
[2016-12-20 03:40] LABS: BASOPHILS % (AUTO) 0.8 % (0-3); EOSINOPHILS % (AUTO) 2.4 % (0-5); MONOCYTES % (AUTO) 11.5 % (4-12); Mean Corpuscular Hemoglobin 32.6 pg (27.0-35.0); Mean Corpuscular Volume 102.1 fL (81-100); NEUTROPHILS % (AUTO) 52.6 % (40-74); Platelet Count 237 bil/L (150-400)
[2016-12-20 04:26] LABS: Magnesium 2.4 mg/dL (1.6-2.6); Phosphorus 6.6 mg/dL (2.5-4.9)
--- NOTE | 2016-12-20 05:27 | NUR ---
Tele/Heparin Patient in sinus rhythm with IVCD and 1st degree AV block, rates in the 60s. PTT result at 2014 of 40.8; based on patient's prior critical high PTT of >240 earlier in the day, conservatively restarted heparin infusion with 1000 unit bolus and set rate at 1000 units per hour. Subsequent PTT of 63.3. Continue to monitor.
[2016-12-20 07:15] VITALS: PULSE 70
[2016-12-20 07:40] VITALS: BP 124/51; PULSE 66; RESP 16; O2SAT 92
[2016-12-20] MEDS: Insulin LISPRO 300 Unit/3 mL Inj SUBQ SCH ×3 (07:55→18:37)
[2016-12-20] MEDS ORDERED: MeTOProlol XL 25 mg ER24 Tablet PO SCH (08:30)
[2016-12-20 09:34] VITALS: PULSE 60
--- NOTE | 2016-12-20 10:15 | NUR ---
Stress Test She was taken by wheelchair and transporter to get a stress test in nuclear medicine at 0805. Loader Technician notified. She was on 2L nasal cannula satting at 92%. Turned her O2 up to 3L before transport. She arrived back to her room, [facility] 2025 at 1010 and was settled back into her room. Care continues.
[2016-12-20 13:04] VITALS: BP 127/60; PULSE 66; RESP 14; O2SAT 100
--- NOTE | 2016-12-20 15:44 | PCM.PNMED ---
Subjective Date of Service Dec 20, 2016 Subjective overnight: No acute events noted Today: The patient states that she has had no recurrence of her chest pain and no recurrence of any shortness of breath. She states that she is able to urinate without much difficulty, however she admits to chronic oliguria due to her end-stage renal disease. She states that she has had a bowel movement without issue. She is able to get out of bed and get to the bathroom without any chest pain or dizziness. She states that she would like for her son to come because of her. Her son is supposedly in long term and will require a note sent to his financial planner for him to be allowed to come to the hospital. Exam Vital Signs Vital Sign - Last Date Time Temp Pulse Resp B/P Pulse Ox O2 Delivery O2 Flow Rate FiO2 12/20/16 03:34 36.5 60 18 101/50 99 Nasal Cannula 2.00 Intake and Output 12/19/16 12/19/16 12/20/16 Cumulative From/Thru 15:00 23:00 07:00 12/19/16 01:15 - 12/20/16 06:09 Intake Total 204 ml 277 ml 558 ml Output Total 0 ml 0 ml 0 ml Balance 204 ml 277 ml 558 ml Intake Oral 0 ml 120 ml 120 ml IV Total 204 ml 157 ml 438 ml Output Urine Total 0 ml 0 ml 0 ml # Bowel Movements 1 1 2 Exam General: Obese female appearing older than her stated age, Alert, Oriented X3, Cooperative, No acute Distress Eyes: Scleral Anicteric, right eye has severe cataracts with notable clouding of the lens Mouth: Mouth Normal, Mucous Membranes Moist/[place], no oral thrush appreciated Neck: Supple, no Thyromegaly, trachea central, no JVD Chest & Lungs: Clear to auscultation & percussion, No adventitious breath sounds, no crackles, no wheeze Cardiovascular: Normal S1, Normal S2, No Murmurs/Rubs/Gallops, Regular Rate/ Rhythm Pulses: Radial (present and equal bilaterally), Dorsalis Pedi (present and equal bilaterally) Abdomen: Soft, Non-tender, Non-distended, Normoactive bowel tones. Extremities: No edema, no cyanosis, no clubbing. AV fistula present in RUE with bruit and thrill appreciated, with old AV graft in the LUE Skin: No rashes. Warm and dry, no erythematous areas. Venous stasis changes in the legs Neurological: Grossly neurologically intact, Normal Speech, Sensation Intact Psych: Normal mood and affect Lab and Diagnostics Result Diagram: 12/20/1622512/20/16225 X-Rays, CTs and MRIs PROCEDURE: X-RAY CHEST ONE VIEW, PORTABLE IMPRESSION: No acute process. Dictated by: Williams Samuels M.D. on 12/19/2016 at 7:29 Cardiac Echo Impressions Echocardiogram Report Interpretation Summary Normal sinus rhythm. Normal LV size; normal wall thickness; there is subtle apical and distal segment hypokinesis c/w either distal LAD ischemia versus infarct versus stress cardiomyopathy. EF is 50-55%. Stage II diastolic dysfunction. Aortic valve is a trileaflet structure with moderate leaflet calcification. There is no significant aortic stenosis or regurgitation. There is moderate central mitral regurgitation in the setting of normal leaflets. Compared to prior study apical and distal segment wall motion abnormalities are new. Reading Physician:06:50 PM Additional Diagnostics 1 DAY PHARMACOLOGICAL STRESS TEST IMPRESSION: 1. No perfusion defects to indicate ischemia. 2. Ejection fraction is on slightly depressed at 41%. 3. No EKG changes of ischemia. Dictated by: Mira Pro M.D. on 12/20/2016 at 16:32 Approved by: Mira Pro M.D. on 12/20/2016 at 16:36 Assessment & Plan Patient is a 66 year old female with Diabetes, ESRD on dialysis, Stroke and Hyperlipidemia brought to [facility] emergency department via EMS due to nonradiating right-sided chest pain. Hospital day 1. 1. Systolic congestive heart failure likely secondary to stress cardiomyopathy , acute. Present on admission - unlikely a Non ST elevation Myocardial Infarction - Several risk factors for Acute coronary disease with age, Diabetes, Hyperlipidemia and longstanding renal disease. EKG with some changes noted. - Antithrombotic therapy with Plavix and Aspirin. - Cardiology consultation requested for evaluation of possible cardiac catheterization and we appreciate their input. - discontinue Heparin drip per ACS protocol prior to NM testing - pharmacologic NM stress testing with results pending - Start metoprolol XL 12.5 mg daily - Patient has reported negative side effects to leobardo inhibitors and angiotensin receptor blockers. - Morphine available IV push PRN chest pain. 2. Hypocalcemia, present on admission, ongoing. - Likely due to increased loss from chronic renal insufficiency and pseudohypoparathyroidism - Continue to monitor BMP and replace if needed. 3. 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 - Hgb A1c ordered and pending. 4. End-stage renal disease, on hemodialysis //Tue, present on admission, presume stable. - Due to Diabetic Nephropathy and possible Hypertensive Nephrosclerosis. - No indications for emergent dialysis. - Nephrology consulted for inpatient dialysis orders and we appreciate their input. - Continue Renvela. - Follow BMP. - Patient will be dialyzed tomorrow if still hospitalized 5. History of CVA, chronic, present on admission, presume stable. - Continue secondary prevention with Aspirin, Plavix and statin 6 Hyperlipidemia, chronic, present on admission, presume stable. - Lipids ordered and pending. - Continue statin. 7. Depression, chronic, present on admission, presume stable. - Continue sertraline 25 mg daily. 8. Obesity, present on admission, chronic - Encourage weight loss for both diabetes and general overall health - Acetaminophen as needed for mild pain/fever/headache - Bowel regimen as needed - Antiemetic as needed Disposition: With normal stress testing patient will be discharged home today with follow-up with primary care physician in one week and cardiology in 4 weeks. Pain Evaluation: Adequate Pain Control GI Prophylaxis: H2 ady VTE Prophylaxis: Sub-Q Heparin (Unfractionated) Resuscitation Status: CPR: Attempt Resuscitation Attending Statement The patient was seen and examined together with Dr. Moncada on 12/20/2016 and I agree with the history, exam and plan as outlined in the note above. . Balta Moncada DO Dec 20, 2016 07:55 Alfonso Rodríguez MD Dec 22, 2016 10:47
[2016-12-20 15:59] VITALS: BP 135/50; PULSE 63; RESP 16; O2SAT 98
--- NOTE | 2016-12-20 16:07 | NUR ---
Social Work Note: Continued Discharge Planning Data& Assessment: EMR reviewed. MERCEDES met with pt and pt daughters at bedside to check in and assess for any unmet needs. Per pt is not medically ready for discharge at this time. Pt requires a note referencing her hospitalization with admission date in order to reschedule a legal visitation with her son. Per MD request, MERCEDES printed out a letter stating pt admission date on behalf of MD. reviewed the letter, approved, and signed the letter. MERCEDES faxed the letter to pt layer as requested. Pt and pt family deny any other needs at this time. Per RN pt is ambulating at baseline. SW to continue to follow if any needs arise. Plan: Anticipated discharge back home with private in home caregiving and resume dialysis. Pt and pt family deny any other needs at this time. SW to continue to follow if any needs arise. MERLE Lund
--- NOTE | 2016-12-20 16:37 | DRSVH ---
PROCEDURE: 1 DAY PHARMACOLOGICAL STRESS TEST Rest and pharmacological stress myocardial perfusion SPECT with gated imaging and ejection fraction RADIOPHARMACEUTICAL: 32.7 mCi Tc-99m tetrafosmin IV at rest and 10.75 mCi Tc-99m tetrafosmin IV at pe ak effect of pharmacological stress. A [id number]-[id number] was performed. INDICATIONS: CHEST PAIN TECHNIQUE: Radiopharmaceutical was injected at peak stress test, and also at rest. SPECT images wer e obtained. SPECT myocardial perfusion images were displayed in short axis, horizontal long axis, an d vertical long axis views. Gated images were reviewed using Auto[employer] software. COMPARISON: None. CARDIAC STRESS: A pharmacologic stress test was performed under the supervision of an attending staff, using an infus ion of 5.0 mL 0.4 mg Lexiscan. Hemodynamic data: There is normal blood pressure and heart rate response to pharmacologic stress. Symptoms: The patient denied anginal chest pain. Aminophylline: Not administered EKG: No diagnostic changes of ischemia; no ectopy. FINDINGS: Raw data: There is good myocardial uptake of radiotracer. No significant motion artifacts. Left ventricle function: Gated images demonstrate normal left ventricular wall thickening. No segme ntal wall motion abnormalities. There is minimal dilation of the left ventricle. Left ventricle resti ng end diastolic volume is 169 mL. Left ventricle stress ejection fraction is 41%; normal range is a antonietta 45%. Myocardial perfusion: There are apparent stress perfusion defects within the apex as well as inferio r wall. However, these resolved between prone and supine imaging. No persistent areas of stress perfu aimee defect are identified. IMPRESSION: 1. No perfusion defects to indicate ischemia. 2. Ejection fraction is on slightly depressed at 41%. 3. No EKG changes of ischemia. PQRS ATTESTATIONS: Measure 322 - Is this imaging test primarily performed on a low-risk surgery patient for preoperative evaluation within 30 days preceding their low-risk non-cardiac surgery? Low-risk surgery is defined as cardiac or myocardial infarction less than 1%, including (but not limited to) endoscopic pr ocedures, superficial procedures, cataract surgery, and excisional breast surgery: Answer: No Measure 323 - Is this imaging test performed primarily for the monitoring of an asymptomatic patient who had percutaneous coronary intervention on the visit date or within 2 years of the visit date? An swer: No Measure 324 - Is this imaging test performed primarily for the initial detection and risk assessment on an asymptomatic, low coronary heart disease patient? Low CHD risk definition = clinicians should consider the maximum number of available patient factors used to estimate risk based on [employer] (A TP III criteria), typically age, gender, diabetes, smoking status, and use of blood pressure medicati on, and integrate age appropriate estimates for missing elements, such as LDL or standard blood press ure. Answer: No Dictated by: Mira Pro M.D. on 12/20/2016 at 16:32 Approved by: Mira Pro M.D. on 12/20/2016 at 16:36
[2016-12-20] MEDS ORDERED: METO25TA99 PO ×2 (17:33→17:50)
--- NOTE | 2016-12-20 17:49 | PCM.DIMED ---
Balta Moncada DO 12/20/16 1749: Discharge Instructions Date of Service Dec 20, 2016 Dates of Hospitalization Dec 19, 2016 at 02:36 Discharge Diagnosis Discharge Diagnosis 1. Systolic congestive heart failure secondary to possible stress cardiomyopathy and unlikely Myocardial Infarction 2. Hypocalcemia 3. 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 End-stage renal disease, on hemodialysis 5. History of CVA 6 Hyperlipidemia 7. Depression 8. Obesity Medication Instructions Please continue to take all your regular home medications as directed. Only one new medication is been added to her current home regimen and this is metoprolol XL 12.5 mg daily. Please take this medication at night. The smallest pill dosing is 25 mg so the pill will have to be cut in half. Test Results 1 DAY PHARMACOLOGICAL STRESS TEST IMPRESSION: 1. No perfusion defects to indicate ischemia. 2. Ejection fraction is on slightly depressed at 41%. 3. No EKG changes of ischemia Dictated by: Mira Pro M.D. on 12/20/2016 at 16:32 Approved by: Mira Pro M.D. on 12/20/2016 at 16:36 Diet Low fat, Low Sodium, Heart Healthy, Diabetic, Renal Diet Activity Limited until seen by PCP Call your provider Fever or Chills, Shortness of breath, Bleeding, Chest pain, Vomitting, Excessive diarrhea, Weakness (unilateral), Other Patient Instructions Please to continue to go to dialysis on her regularly scheduled Tuesday, , Tuesday schedule. It does not appear that your chest pain was due to cardiac ischemia given her stress test results. That being said please try and not overdo activities the next couple days. Please return to the ED if you have any worsening of her chest pain. The heart condition that you are currently suffering from may be reversible with time as long as you take your medication. Follow-up plan Please follow-up with your regular primary care provider to discuss this recent hospitalization as well as to discuss the new medication you been started on metoprolol XL 12.5 mg taken at night. Please follow-up with your document improvement specialist in the next 3-4 weeks so that they can discuss your recent hospitalization and consider getting follow-up ultrasound imaging of your heart to check for resolution of your stress cardiomyopathy. Follow-up Provider: Etelvina Banegas MD Follow-up with PCP in: 1 week Provider: Yaron Jesus MD Follow-up in: 4 weeks CHF Clinic: 2 weeks Alfonso Rodríguez MD 12/22/16 1046: Discharge Instructions Attending's Statement The patient was seen and examined together with Dr. Moncada on 12/20/2016 and I agree with the history, exam and plan as outlined in the note above. . Balta Moncada DO Dec 20, 2016 17:49 Alfonso Rodríguez MD Dec 22, 2016 10:46
[2016-12-20] MEDS ORDERED: MeTOProlol XL 25 mg ER24 Tablet PO ONE (18:00)
--- NOTE | 2016-12-20 18:42 | NUR ---
Discharge She discharged with all her belongings and her family at 1843. Was taken to a family member's car in a wheelchair by the INSTRUMENTATION AND CONTROLS TECHNICIAN. Given her discharge paper work and verbally discussed it all with her since she is legally blind (hard copy of prescription, care notes, MD/nurse instructions). Her IV and telemetry were discontinued intact. She had no questions or concerns at the time of discharge. Spoke with family about them helping her tomorrow to get the Metoprolol prescription. They agreed they would help her. She was given a one time dose of Metoprolol before she discharged.
--- NOTE | 2016-12-20 19:52 | PCM.DC.MED ---
Discharge Summary Date of Service Dec 20, 2016 Dates of Hospitalization Date of Hospital Admission Dec 19, 2016 at 02:36 Date of Discharge: Dec 20, 2016 Providers: Admitting Physician: Tha Bhatia MD Primary Care Physician: Etelvina Banegas MD Attending Physician: Tha Bhatia MD Diagnosis at Time of Discharge Diagnosis at Time of Discharge 1. Systolic congestive heart failure secondary to possible stress cardiomyopathy and unlikely Myocardial Infarction 2. Hypocalcemia 3. 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 End-stage renal disease, on hemodialysis 5. History of CVA 6 Hyperlipidemia 7. Depression 8. Obesity Consultations cardiology nephrology Procedures XRay, CTs & MRIs PROCEDURE: X-RAY CHEST ONE VIEW, PORTABLE IMPRESSION: No acute process. Dictated by: Williams Samuels M.D. on 12/19/2016 at 7:29 Cardiac Echo Impression Echocardiogram Report Interpretation Summary Normal sinus rhythm. Normal LV size; normal wall thickness; there is subtle apical and distal segment hypokinesis c/w either distal LAD ischemia versus infarct versus stress cardiomyopathy. EF is 50-55%. Stage II diastolic dysfunction. Aortic valve is a trileaflet structure with moderate leaflet calcification. There is no significant aortic stenosis or regurgitation. There is moderate central mitral regurgitation in the setting of normal leaflets. Compared to prior study apical and distal segment wall motion abnormalities are new. Reading Physician:06:50 PM Other Diagnostics 1 DAY PHARMACOLOGICAL STRESS TEST IMPRESSION: 1. No perfusion defects to indicate ischemia. 2. Ejection fraction is on slightly depressed at 41%. 3. No EKG changes of ischemia. Dictated by: Mira Pro M.D. on 12/20/2016 at 16:32 Approved by: Mira Pro M.D. on 12/20/2016 at 16:36 Brief History From the H&P by Tha Bhatia MD "Dannielle Wolf is a 66 year old female with Diabetes, ESRD on dialysis, Stroke and Hyperlipidemia brought to [facility] emergency department via EMS due to nonradiating right-sided chest pain. The pain began approximately 45 minutes prior to when the pt called paramedics. Patient describing pain as more of a "discomfort." Non radiating. Mild intensity. She received aspirin en route which resolved the pain. She denies neck pain, back pain, abdominal pain, or pleuritic pain, as well as any history of similar symptoms. Patient has no prior history of cardiac disease The pt took her blood sugar before calling paramedics, which was in the 390's. She took 10 units of insulin and her dose of Lantus. She is legally blind Patient has been on dialysis for more than 21 years now. Currently receiving dialysis on Tuesday, and Tuesday Case discussed with Dr Heaton, who initiated treatment for Non ST elevation AK. Heparin drip started" Hospital Course Patient is a 66 year old female with Diabetes, ESRD on dialysis, Stroke and Hyperlipidemia brought to [facility] emergency department via EMS due to nonradiating right-sided chest pain. Hospital day 1. 1. Systolic congestive heart failure likely secondary to stress cardiomyopathy , acute. Present on admission - unlikely a Non ST elevation Myocardial Infarction - Several risk factors for Acute coronary disease with age, Diabetes, Hyperlipidemia and longstanding renal disease. EKG with some changes noted. - Antithrombotic therapy with Plavix and Aspirin. - Cardiology consultation requested for evaluation of possible cardiac catheterization and we appreciate their input. - discontinue Heparin drip per ACS protocol prior to NM testing - pharmacologic NM stress testing with negative results for ischemia - Start metoprolol XL 12.5 mg daily - Patient has reported negative side effects to leobardo inhibitors and angiotensin receptor blockers. 2. Hypocalcemia, present on admission, ongoing. - Likely due to increased loss from chronic renal insufficiency and pseudohypoparathyroidism - Follow up as an outpatient 3. 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 - Hgb A1c ordered and pending 4. End-stage renal disease, on hemodialysis /Tue, present on admission, presume stable. - Due to Diabetic Nephropathy and possible Hypertensive Nephrosclerosis. - Continue Renvela. - Patient will be dialyzed on her normal Tuesday schedule as an outpatient after discharge 5. History of CVA, chronic, present on admission, presume stable. - Continue secondary prevention with Aspirin, Plavix and statin 6 Hyperlipidemia, chronic, present on admission, presume stable. - Lipids ordered and pending. - Continue statin. 7. Depression, chronic, present on admission, presume stable. - Continue sertraline 25 mg daily. 8. Obesity, present on admission, chronic - Encourage weight loss for both diabetes and general overall health Exam Vital Signs (Last) Date Time Temp Pulse Resp B/P Pulse Ox O2 Delivery O2 Flow Rate FiO2 12/20/16 15:59 36.5 63 16 135/50 98 Nasal Cannula 1.00 Exam General: Obese female appearing older than her stated age, Alert, Oriented X3, Cooperative, No acute Distress Eyes: Scleral Anicteric, right eye has severe cataracts with notable clouding of the lens Mouth: Mouth Normal, Mucous Membranes Moist/[place], no oral thrush appreciated Neck: Supple, no Thyromegaly, trachea central, no JVD Chest & Lungs: Clear to auscultation & percussion, No adventitious breath sounds, no crackles, no wheeze Cardiovascular: Normal S1, Normal S2, No Murmurs/Rubs/Gallops, Regular Rate/ Rhythm Pulses: Radial (present and equal bilaterally), Dorsalis Pedi (present and equal bilaterally) Abdomen: Soft, Non-tender, Non-distended, Normoactive bowel tones. Extremities: No edema, no cyanosis, no clubbing. AV fistula present in RUE with bruit and thrill appreciated, with old AV graft in the LUE Skin: No rashes. Warm and dry, no erythematous areas. Venous stasis changes in the legs Neurological: Grossly neurologically intact, Normal Speech, Sensation Intact Psych: Normal mood and affect Test 12/19/16 01:14 12/19/16 02:40 12/19/16 08:15 12/20/16 02:26 Total Bilirubin 0.3mg/dL (0.0-1.2) Aspartate Amino Transf (AST/SGOT) 21U/L (0-50) Alanine Aminotransferase (ALT/SGPT) 15U/L (0-32) Alkaline Phosphatase 283U/L (25-165) Total Protein 7.7g/dL (6.4-8.4) Albumin 4.3g/dL (3.4-5.0) Thyroid Stimulating Hormone (TSH) 4.230uIU/mL (0.450-4.500) Total Creatine Kinase 55U/L (21-215) Creatine Kinase MB 2.3ng/mL (0.0-5.3) Creatine Kinase MB % % (0.0-5.0) Troponin T 0.059ug/L (0.0-0.011) White Blood Count 6.5th/mm3 (3.8-10.1) Red Blood Count 3.74mil/mm3 (3.90-5.20) Hemoglobin 12.2g/dL (12.0-15.6) Hematocrit 38.2% (35.0-46.0) Mean Corpuscular Volume 102.1fL (81-100) Mean Corpuscular Hemoglobin 32.6pg (27.0-35.0) Mean Corpuscular Hemoglobin Concent 31.9% (32.0-37.0) Red Cell Distribution Width 17.6% (12.3-15.4) Platelet Count 237bil/L (150-400) Neutrophils (%) (Auto) 52.6% (40-74) Lymphocytes (%) (Auto) 32.4% (14-46) Monocytes (%) (Auto) 11.5% (4-12) Eosinophils (%) (Auto) 2.4% (0-5) Basophils (%) (Auto) 0.8% (0-3) Sodium Level 138mEq/L (134-144) Potassium Level 4.8mEq/L (3.5-5.2) Chloride Level 97mEq/L (97-108) Carbon Dioxide Level 20mmol/L (18-29) Blood Urea Nitrogen 54mg/dL (8-27) Creatinine 6.70mg/dL (0.57-1.00) Estimat Glomerular Filtration Rate 9mL/min (>59) Glucose Level 116mg/dL (60-99) Calcium Level 8.5mg/dL (8.5-10.1) Phosphorus Level 6.6mg/dL (2.5-4.9) Magnesium Level 2.4mg/dL (1.6-2.6) Triglycerides Level 120mg/dL (0-149) Cholesterol Level 111mg/dL (100-199) LDL Cholesterol, Calculated 32.000mg/dL (0-99) VLDL Cholesterol 24.000mg/dL HDL Cholesterol 55mg/dL (>39) Cholesterol/HDL Ratio 2.02 (0.0-4.4) Test 12/20/16 10:20 Activated Partial Thromboplast Time 31.0sec (22.8-33.0) Discharge Medications Discharge Medications Acetaminophen/Codeine 300-30mg (Acetaminophen/Codeine 300-30mg) 1 Each Tablet 1 TAB PO 3x WEEKLY (Reported) BEFORE DIALYSIS & hs prn Aspirin (Lite Coat Aspirin) 325 Mg Tablet 325 MG PO DAILY (Reported) Cholecalciferol (Vitamin D3) (Vitamin D) 1,000 Unit Tablet 4,000 UNIT PO DAILY ( Reported) Clopidogrel Bisulfate (Plavix) 75 Mg Tablet 75 MG PO DAILY (Reported) Hum Insulin NPH/Reg Insulin Hm (HUMulin 70/30 U100 Insulin Kwikpen) 100 Unit/1 Ml Insuln.pen 27 UNIT SUBQ AM (Reported) Hum Insulin NPH/Reg Insulin Hm (HUMulin 70/30 U100 Insulin Kwikpen) 100 Unit/1 Ml Insuln.pen 7-10 UNIT SUBQ evening (Reported) per sliding scale Lovastatin (Lovastatin) 40 Mg Tablet 40 MG PO HS (Reported) Metoprolol Succinate ER (Metoprolol Succinate ER) 25 Mg Tab.er.24h 12.5 MG PO HS Prescribed by: SONG MONCADA DO Polyethylene Glycol 3350 (Miralax) 17 Gm Powd.pack 17 GM PO DAILY (Reported) Sertraline HCl (Zoloft) 50 Mg Tablet 25 MG PO DAILY (Reported) Sevelamer HCl (Renagel) 800 Mg Tablet 2,400 MG PO BID (Reported) Vit B Cmplx 3/FA/Vit C/Biotin (Nephro-Agustina Rx) 1 Each Tablet 0.8 MG PO DAILY ( Reported) As needed Acetaminophen (Acetaminophen) 500 Mg Tablet 500-1,000 MG PO Q6H PRN PRN For Fever (Reported) Bisacodyl (Dulcolax) 5 Mg Tablet.dr 5 MG PO DAILY PRN PRN For Constipation ( Reported) Miscellaneous Medications Cinacalcet (Sensipar) 30 Mg Tablet (Reported) Additional med instructions Please continue to take all your regular home medications as directed. Only one new medication is been added to her current home regimen and this is metoprolol XL 12.5 mg daily. Please take this medication at night. The smallest pill dosing is 25 mg so the pill will have to be cut in half. Followup Plan Disposition: Home Follow-up plan Please follow-up with your regular primary care provider to discuss this recent hospitalization as well as to discuss the new medication you been started on metoprolol XL 12.5 mg taken at night. Please follow-up with your principal architectural firm in the next 3-4 weeks so that they can discuss your recent hospitalization and consider getting follow-up ultrasound imaging of your heart to check for resolution of your stress cardiomyopathy. Discharge Diet: Low fat, Low Sodium, Heart Healthy, Diabetic, Renal Diet Discharge Activity: Limited until seen by PCP Patient Instructions Please to continue to go to dialysis on her regularly scheduled Tuesday, , Tuesday schedule. It does not appear that your chest pain was due to cardiac ischemia given her stress test results. That being said please try and not overdo activities the next couple days. Please return to the ED if you have any worsening of her chest pain. The heart condition that you are currently suffering from may be reversible with time as long as you take your medication. Follow-up Provider: Etelvina Banegas MD Follow-up with PCP in: 1 week Provider: Yaron Jesus MD Follow-up in: 4 weeks CHF Clinic: 2 weeks Time spent Greater than 30 minutes was spent in preparation of discharge with greater than 50% of that time dedicated to patient counseling and coordination of care. . Attending Statement The patient was seen and examined together with Dr. Moncada on 12/20/2016 and I agree with the history, exam and plan as outlined in the note above. . copies to: Etelvina Banegas MD, Nicholas K DO Dec 20, 2016 19:52 Alfonso Rodríguez MD Dec 22, 2016 10:46
== END 2016-12-20 18:50 | disposition home or self-care (01) | DRG 314 ==
LOC: EDBD 01:02 → SED 01:02 → EDSEX 01:02 → PCC 02:36
PROVIDERS: ADMIT Hospitalist; ATTEND Hospitalist
DX: I51.81 Takotsubo syndrome (principal); N18.6 End stage renal disease; I12.0 Hypertensive chronic kidney disease with stage 5 chronic kidney disease or end stage renal disease; I50.22 Chronic systolic (congestive) heart failure; E11.42 Type 2 diabetes mellitus with diabetic polyneuropathy; E11.319 Type 2 diabetes mellitus with unspecified diabetic retinopathy without macular edema; E78.5 Hyperlipidemia, unspecified; I25.10 Atherosclerotic heart disease of native coronary artery without angina pectoris; M17.0 Bilateral primary osteoarthritis of knee; M16.11 Unilateral primary osteoarthritis, right hip; H54.8 Legal blindness, as defined in USA; G47.33 Obstructive sleep apnea (adult) (pediatric); Z86.73 Personal history of transient ischemic attack (TIA), and cerebral infarction without residual deficits; Z79.82 Long term (current) use of aspirin; Z99.2 Dependence on renal dialysis